=== PATIENT | female | born 1950 | race Caucasian/White ===

== ENCOUNTER 2020-10-04 13:58 | Emergency (ER) | payer OTHER, BC ==
[~2020-10-04] VITALS: Ht 167.6 cm; Wt 65.8 kg
[2020-10-04 15:05] VITALS: Ht 167.6 cm; Wt 65.8 kg
[2020-10-04 18:03] VITALS: BP 133/83
== END 2020-10-04 18:39 | disposition home or self-care (01) ==
LOC: ED 13:58
DX: S09.8XXA Other specified injuries of head, initial encounter (principal); W17.89XA Other fall from one level to another, initial encounter; Y93.89 Activity, other specified; Y92.89 Other specified places as the place of occurrence of the external cause; Y99.8 Other external cause status
CPT/HCPCS: 90715; J1630